=== PATIENT | female | born 1995 | race Two or more races ===

== ENCOUNTER 2017-02-20 21:22 | Emergency (ER) | payer SELFPAY ==
[2017-02-20 21:28] VITALS: BP 131/85; PULSE 98; RESP 14; TEMP 99; O2SAT 97
--- NOTE | 2017-02-20 22:37 | EDPHY ---
H & P Time Seen by Provider: 02/20/17 21:36 HPI/ROS: CHIEF COMPLAINT: Left index finger laceration HISTORY OF PRESENT ILLNESS: 21-year-old female presents to the emergency department with a laceration to the left index finger. The patient was using a knife to open a beer and accidentally cut the left index finger. The incident happened just prior to arrival. She is right-hand dominant. She believes her tetanus shot is current. Denies any other injuries or trauma. ROS: Denies numbness or tingling in her fingers, retained foreign body or other injuries. Past Medical/Surgical History: Asthma, pyelonephritis, appendectomy Social History: Single, from [facility] Smoking Status: Current every day smoker Physical Exam: On examination the patient has a 2 cm flap laceration to the distal, palmar aspect of the left index finger. Laceration does not extend into the DIP joint or the nail. There is no active bleeding noted. The other fingers do not appear injured. No palpable bony tenderness. Constitutional: Initial Vital Signs Temperature (C) 37.2 C 02/20/17 21:24 Heart Rate 98 02/20/17 21:24 Respiratory Rate 14 02/20/17 21:24 Blood Pressure 131/85 H 02/20/17 21:24 O2 Sat (%) 97 02/20/17 21:24 O2 Delivery Mode Room Air Allergies/Adverse Reactions: No Known Allergies Allergy (Unverified 02/20/17 21:24) Home Medications: Medication Instructions Recorded NK [No Known Home Meds] 02/20/17 MDM/Departure - MDM Procedures: Laceration repair. Verbal consent was obtained from the patient. The 2 cm flap laceration on the left index finger was anesthetized using 1% lidocaine without epinephrine 0.5% bupivacaine without epinephrine. The wound was irrigated with saline, draped and explored to its base with a gloved finger. There were no deep structures involved. No tendon injury was identified. The wound was repaired with 4 0 Ethilon, 4 sutures. The wound repair was simple. The procedure was performed by myself. - Depart Disposition: Home, Routine, Self-Care Clinical Impression: Laceration of left index finger Qualifiers: Encounter type: initial encounter Damage to nail status: without damage Foreign body presence: without foreign body Qualified Code(s): S61.211A - Laceration without foreign body of left index finger without damage to nail, initial encounter Condition: Good Instructions: Laceration (ED), Care For Your Stitches (ED), Acute Wounds (ED) Additional Instructions: Wound Care Follow-Up: Removal of sutures in 10 days. Suture removal is complimentary in uncomplicated cases. Infection or abnormal findings would require reevaluation by the MD. In that case, you may be billed. Return to the emergency department if you notice any signs or symptoms of infection such as redness, swelling, increased pain, fever, purulent drainage. Referrals: Maikel Thomas MD [Medical Doctor] - 2-3 days, if not improved (Primary care provider information systems manager)
== END 2017-02-20 22:48 | disposition home or self-care (01) ==
PROC: 0HQGXZZ Repair Left Hand Skin, External Approach (ICD-10-PCS; principal; 2017-02-20)
DX: S61.211A Laceration without foreign body of left index finger without damage to nail, initial encounter (principal); F17.200 Nicotine dependence, unspecified, uncomplicated; J45.909 Unspecified asthma, uncomplicated; W26.0XXA Contact with knife, initial encounter; Y99.8 Other external cause status; Y93.89 Activity, other specified